=== PATIENT | female | born 2000 | race African-American/Black ===

== ENCOUNTER 2019-11-28 18:27 | Outpatient (CLI) | payer OTHER, SELFPAY ==
[2019-11-28] VITALS (7 sets, daily range): BP systolic 114–133; BP diastolic 58–83; PULSE 67–94; BMI 29.2
[2019-11-28] MEDS: ACETAMINOPHEN 500 MG TABLET 1000 MG PO (20:10)
[2019-11-28 20:22] LABS: Basophils Percent Auto 0.1 % (0.2-1.2); Eosinophils Percent Auto 0.2 % (0-4.4); Hematocrit 33.4 % (37.0-47.0); Hemoglobin 10.8 g/dL (12.0-15.0); Immature Granulocyte Absolute 0.04 K/mm3 (0.00-0.031); Immature Granulocyte Percent A 0.5 % (0-0.5); Lymphocytes Absolute Auto 2.03 K/mm3 (0.9-3.2); Lymphocytes Percent Auto 24.6 % (18.3-44.2); Mean Corpuscular HGB Conc 32.3 g/dl (32-36); Mean Corpuscular Volume 80.3 fl (80-100); Mean Platelet Volume 8.8 fl (7.4-10.4); Monocytes Absolute Auto 0.9 K/mm3 (0.1-0.6); Monocytes Percent Auto 10.8 % (2.6-8.5); Neutrophils Absolute Auto 5.3 K/mm3 (1.3-6.7); Neutrophils Percent Auto 63.8 % (45.5-73.1); Platelet Count Result 236 k/mm3 (150-375); Red Blood Count 4.16 M/mm3 (4.2-5.4); White Blood Count 8.2 K/mm3 (4.5-10.0)
[2019-11-28 20:27] LABS: Add Urine Microscopic? YES; Amorphous Sediment Urine Few; Appearance Urine Cloudy (Clear); Bacteria Urine 1+ /hpf; Bilirubin Urine Negative (Negative); Blood Urine Negative (Negative); Color Urine Yellow (Yellow); Glucose Urine UA Negative (Negative); Ketones Urine Negative (Negative); Leukocyte Esterase Ur 3+ LEU/UL (NEGATIVE); Mucus Urine Rare /lpf; Nitrate Urine Negative (Negative); Protein Urine Negative (Negative); Specific Grav Ur 1.019 (1.001-1.035); Squamous Epithelial Cell Urine Many /hpf (Few); WBC Urine 16-20 /hpf (0-3)
[2019-11-28 20:34] LABS: Alanine Aminotransferase 7 U/L (4-35); Albumin Level 3.4 g/dL (3.5-5.1); Alkaline Phosphatase 158 U/L (38-126); Aspartate Amino Transferase 21 U/L (14-36); Bilirubin,Total 0.3 mg/dL (0.2-1.3); Blood Urea Nitrogen 4 mg/dL (7-17); Calcium 8.6 mg/dL (8.4-10.2); Carbon Dioxide 21 mmol/L (22-30); Chloride 105 mmol/L (98-107); Estimated CRCL calculation 144 ml/min; Estimated Glomerular Filt Rate > 60; Glucose 73 mg/dL (65-105); Potassium 3.7 mmol/L (3.4-5.0); Sodium 133 mmol/L (137-145); Total Protein Urine Random 10 mg/dL; Uric Acid 3.3 mg/dL (2.5-7.5)
--- NOTE | 2019-11-28 22:09 | OBADM ---
This patient, Alex Osuna, admitted to the OB room OB Post 115 for observation. Patient/family oriented to hospital policies and general routines including ID bracelet, bed and alarms, visiting hours, pain management, procedures, bathroom and other care routines, personal items, smoking policy, room service/diet, and visiting hours. Patient/Family are encouraged to report perceived risks to care and to ask questions if they do not understand what they are told or what they should do.
== END 2019-11-28 21:32 | disposition home or self-care (01) ==
LOC: ANHOBPP 21:45 → ANHOBOP 11-30 12:42 → ANHOBPP 12-23 12:05
PROVIDERS: Advanced Practice Midwife; Visit Provider Obstetrics & Gynecology
DX: Z34.90 Encounter for supervision of normal pregnancy, unspecified, unspecified trimester (principal); Z3A.00 Weeks of gestation of pregnancy not specified
CPT/HCPCS: 36415; 80053; 81001; 82570; 84156; 84550; 85025; 87086; 87088; 99199; A9270

== ENCOUNTER 2019-11-30 11:53 | Observation (INO) | payer OTHER, SELFPAY ==
[2019-11-30] VITALS (12 sets, daily range): BP systolic 102–124; BP diastolic 56–74; PULSE 66–101; TEMP 36.5–37.3; BMI 28.3
--- NOTE | 2019-11-30 12:22 | OBADM ---
This patient, Alex Osuna, admitted to the OB room 116 at 1153 for observation for extended monitoring due to FHR deceleration on NST at [facility] office. Patient/family oriented to hospital policies and general routines including ID bracelet, bed and alarms, visiting hours, pain management, procedures, bathroom and other care routines, personal items, smoking policy, room service/diet, and visiting hours. Patient/Family are encouraged to report perceived risks to care and to ask questions if they do not understand what they are told or what they should do.
[2019-11-30] MEDS: ACETAMINOPHEN 500 MG TABLET 1000 MG PO (14:19)
--- NOTE | 2019-11-30 17:01 | WPDOBADMIT ---
Obstetrics - Admit Note Admission Note: record reviewed. Additions to the history and/or subsequent changes in the physical findings follow. pt admitted for observation following non reassuring NST today. Pt had 04/28 on biophysical profile and on US:11/30/2019 1. single, live IUP at [id number] 2. prev diagnosed early onset growth restriction 3. symmetric growth restriction (with short long bones) 4. Thorax circumference less than 1 st percentile 5. normal amniotic fluid 6. mild myocardial dysfunction 7. biventricular cardiac hypertrophy 8. overall appropriate BPP 9. non stress test with late deceleration 10. no signs of placental insufficeincy or brain sparing changes PLAN: monitor pt overnight, continuous monitoring, review in morning with MFM
--- NOTE | 2019-11-30 19:38 | PC.NURSE ---
Patient instructed to continue increasing PO fluids. Patient educated on positioning during . Patient changed to left lateral position with pillows for support. Patient instructed to call for RN if feeling and cramping or contractions.
[2019-11-30] MEDS: NITROFURANTOIN MONOHYD MACROCR 100 MG CAP PO (22:00)
--- NOTE | 2019-11-30 22:04 | PC.NURSE ---
Patient reports constant dull backache in center of back from positioning in bed. Position changed to right lateral position, pillows repositioned and K-Pad applied to back. Patient educated on K-Pad use prior to initiating. Patient denies questions and states understanding. Patient instructed to call for RN if backache does not improve following interventions.
[2019-12-01 01:00] VITALS: TEMP 36.8
[2019-12-01 07:18] VITALS: BP 107/62; PULSE 92; TEMP 36.6
[2019-12-01 12:06] VITALS: BP 113/69; PULSE 120
--- NOTE | 2019-12-01 13:09 | PM.IMHP ---
H&P: HPI History of Present Illness Chief complaint: monitoring Narrative: Alex Osuna is a 19 year old female 1 at 35 weeks gestation with early onset intrauterine growth restriction. She is admitted for long-term monitoring. She has no physical complaints. She denies any contractions, loss of fluid, vaginal bleeding. She denies any headache, blurry vision, epigastric pain. She denies any nausea, vomiting, fever, chills. The patient had some unique findings on her echocardiogram of the fetus. There is some thickened ventricular wall, Some there is some mild myocardial dysfunction. Review of Systems Constitutional: Constitutional: Reports no additional constitutional complaints, Denies fatigue, Denies headache(s), Denies lethargy and Denies weakness Eyes: Eyes: Reports no additional eye complaints, Denies blurry vision and Denies photophobia ENT: Reports as per HPI, Denies headache(s) and Denies neck pain Cardiovascular: Cardiovascular: Denies chest pain, Denies diaphoresis, Denies leg edema, Denies palpitations and Denies dyspnea Respiratory: Respiratory: Denies hemoptysis, Denies dyspnea and Denies wheezing Gastrointestinal: Gastrointestinal: Denies abdominal pain, Denies melena, Denies bloating, Denies hematochezia, Denies nausea and Denies vomiting Genitourinary: Genitourinary: Reports no additional female genitourinary complaints Musculoskeletal: Musculoskeletal: Denies joint swelling, Denies neck pain, Denies numbness and Denies stiffness Neurologic: Denies Abnormal speech present, Denies confusion, Denies headache(s), Denies numbness and Denies weakness Psychiatric: Psychiatric: Denies anxiety, Denies confusion, Denies depression, Denies homicidal ideation and Denies suicidal ideation Endocrine: Endocrine: Denies fatigue and Denies palpitations Allergic/Immunologic: Allergic/Immunologic: Denies wheezing Meds Home Medications and Allergies Home Medications Medication Instructions Recorded Confirmed Type PNV cmb#95-ferrous fumarate-FA 1 tablet PO DAILY 11/28/19 11/30/19 History [] acetaminophen [Tylenol Extra 500 mg PO Q6H PRN 11/30/19 11/30/19 History Strength] famotidine [Pepcid] 20 mg PO BID PRN 11/30/19 11/30/19 History Allergies Allergy/AdvReac Type Severity Reaction Status Date / Time No Known Allergies Allergy Verified 11/30/19 12:08 Vital Signs Vital Signs - 24 hr 11/30/19 13:30 11/30/19 14:00 11/30/19 15:00 Temperature Pulse Rate 66 67 Blood Pressure 115/61 115/72 105/67 11/30/19 16:00 11/30/19 17:07 11/30/19 18:00 Temperature 97.7 F Pulse Rate 80 101 H 70 Blood Pressure 115/74 124/69 109/66 11/30/19 19:00 11/30/19 20:00 11/30/19 22:00 Temperature 98.4 F Pulse Rate 86 73 Blood Pressure 103/58 L 102/56 L 12/01/19 01:00 12/01/19 07:18 12/01/19 12:06 Temperature 98.2 F 97.9 F Pulse Rate 92 120 H Blood Pressure 107/62 113/69 Exam Const: General: healthy appearing, comfortable and no acute distress; No confusion Orientation/consciousness: No confusion Eyes: Direct Ophthalmoscopy: No photophobia Resp: Auscultation: clear to auscultation bilaterally, no rales, no rhonchi and no wheezes Cardio: Rate: regular rate Heart sounds: no click, no murmurs and no rubs GI: Inspection: non-distended GI Palp: No abdominal tenderness Auscultation: normal bowel sounds Neuro: General: No confusion Speech: No Abnormal speech present Extrem: General: normal to inspection, no pedal edema and no calf tenderness Assessment and Plan Assessment and plan (1) IUGR (intrauterine growth restriction): Status: Acute Assessment and Plan: This patient is a 19-year-old 1 at 35 weeks gestation who presented for long-term IM due to some equivocal testing. Her long-term heart rate tracing is reassuring overall. His reactive. There are some occasional brief heart rate decelerations that are likely to be
[2019-12-03 14:30] LABS: CMV IgM Antibody <30.00 AU/mL (<30.00)
[2019-12-04 12:17] LABS: Toxoplasma IgG Antibody <7.20 IU/mL (<7.20)
[2019-12-04 14:40] LABS: Toxoplasma IgM Antibody <8.00 AU/mL (<8.00)
== END 2019-12-01 12:54 | disposition home or self-care (01) ==
LOC: ANHOBPP 11:59
PROVIDERS: Advanced Practice Midwife; Admitting Provider Obstetrics & Gynecology; Visit Provider Obstetrics & Gynecology
DX: O36.5930 Maternal care for other known or suspected poor fetal growth, third trimester, not applicable or unspecified (principal); Z3A.35 35 weeks gestation of pregnancy
CPT/HCPCS: 36415; 86644; 86645; 86777; A9270; G0378; G0379

== ENCOUNTER 2019-12-06 17:24 | Observation (INO) | payer OTHER, SELFPAY ==
--- NOTE | 2019-12-06 19:32 | LDADM ---
This patient, Alex Osuna, was admitted to Labor/Delivery/Recovery 104 on 12/06/19 at 17:24. Plans for labor, pain management and were discussed with patient. Patient/family oriented to hospital policies and general routines including ID bracelet, bed and alarms, visiting hours, pain management, procedures, bathroom and other care routines, personal items, smoking policy, room service/diet and guest tray routines, security routines, and visiting hours. Patient/Family are encouraged to report perceived risks to care and to ask questions if they do not understand what they are told or what they should do. See OBIX for further documentation.
--- NOTE | 2019-12-30 11:31 | PM.OBTRLD ---
OB - Triage/Final Diagnosis Visit Information Date of evaluation: 12/06/19 Final Diagnosis (1) False labor: Code(s): O47.9 - False labor, unspecified Status: Acute
== END 2019-12-06 19:40 | disposition home or self-care (01) ==
PROVIDERS: Admitting Provider Obstetrics & Gynecology; Visit Provider Obstetrics & Gynecology
DX: O47.9 False labor, unspecified (principal); Z3A.00 Weeks of gestation of pregnancy not specified
CPT/HCPCS: G0378; G0379

== ENCOUNTER 2019-12-17 21:54 | Observation (INO) | payer OTHER, SELFPAY ==
--- NOTE | 2019-12-17 21:54 | OBADM ---
This patient, Alex Osuna, admitted to the OB room Labor/Delivery/Recovery 104 for observation. Patient/family oriented to hospital policies and general routines including ID bracelet, bed and alarms, visiting hours, pain management, procedures, bathroom and other care routines, personal items, smoking policy, room service/diet, and visiting hours. Patient/Family are encouraged to report perceived risks to care and to ask questions if they do not understand what they are told or what they should do.
[2019-12-17 22:09] VITALS: TEMP 37; BMI 29.2
--- NOTE | 2019-12-17 23:15 | PC.NURSE ---
Dr. Fisher updated on patient SVE, FHT, Contractions and VS. SVE unchanged after 1 hour of monitoring. Discharge orders received. Patient to follow-up as scheduled.
[2019-12-17 23:16] VITALS: BP 121/85; PULSE 80
--- NOTE | 2019-12-17 23:31 | PC.NURSE ---
Discharge packet reviewed with patient, patient states understanding and denies questions.
--- NOTE | 2019-12-23 07:54 | PM.OBTRLD ---
OB - Triage/Final Diagnosis Final Diagnosis (1) False labor: Code(s): O47.9 - False labor, unspecified Status: Acute
--- NOTE | 2019-12-27 07:35 | PM.OBTRLD ---
OB - Triage/Final Diagnosis Final Diagnosis (1) False labor: Code(s): O47.9 - False labor, unspecified Status: Acute
--- NOTE | 2020-01-03 12:56 | PM.OBTRLD ---
OB - Triage/Final Diagnosis Final Diagnosis (1) False labor: Code(s): O47.9 - False labor, unspecified Status: Acute
== END 2019-12-17 23:31 | disposition home or self-care (01) ==
PROVIDERS: Admitting Provider Obstetrics & Gynecology; Visit Provider Obstetrics & Gynecology
DX: O47.1 False labor at or after 37 completed weeks of gestation (principal); Z3A.37 37 weeks gestation of pregnancy
CPT/HCPCS: G0378; G0379

== ENCOUNTER 2019-12-18 23:38 | Inpatient (IN) | payer OTHER, SELFPAY ==
[2019-12-03 15:34] VITALS: BMI 28.9
--- NOTE | ~2019-12-18 | US_ITS ---
EXAMINATION: US pelvic complete DATE: 12/19/2019 09:08 INDICATION: Possible retained placenta. TECHNIQUE: Multiple transabdominal and endovaginal sonographic images of the pelvis were obtained. COMPARISON: None. FINDINGS: The uterus measures 18.0 x 9.0 x 5.7 cm. The margins of the endometrial complex are somewhat poorly d efined at the uterine fundus where it measures approximately 17 mm in thickness. The endometrial comp rob narrows to approximately 4 mm at the body of the uterus with an additional region of thickening t o approximately 15 mm in the lower uterine segment. The right ovary measures 2.4 x 1.7 x 1.2 cm. The left ovary measures 3.0 x 1.6 x 1.6 cm. There is no free fluid in the pelvis. IMPRESSION: 1. Thickening of the endometrial complex with at the fundus and at the lower uterine segment which co uld be seen with retained products of conception. Reviewed, dictated and finalized at location A. IMPRESSION: 1. Thickening of the endometrial complex with at the fundus and at the lower ut erine segment which could be seen with retained products of conception.
--- NOTE | 2019-12-18 23:38 | LDADM ---
This patient, Aelx Osuna, was admitted to Labor/Delivery/Recovery 107 on 12/18/19 at 23:38. Plans for labor, pain management and were discussed with patient. Patient/family oriented to hospital policies and general routines including ID bracelet, bed and alarms, visiting hours, pain management, procedures, bathroom and other care routines, personal items, smoking policy, room service/diet and guest tray routines, security routines, and visiting hours. Patient/Family are encouraged to report perceived risks to care and to ask questions if they do not understand what they are told or what they should do. See OBIX for further documentation.
[2019-12-19] VITALS (131 sets, daily range): BP systolic 93–266; BP diastolic 54–235; PULSE 60–238; RESP 16–22; TEMP 36.6–38.4; O2SAT 96–100; BMI 29.2
[2019-12-19 01:18] LABS: Basophils Percent Auto 0.1 % (0.2-1.2); Eosinophils Percent Auto 0.2 % (0-4.4); Hematocrit 34.8 % (37.0-47.0); Hemoglobin 11.1 g/dL (12.0-15.0); Immature Granulocyte Absolute 0.03 K/mm3 (0.00-0.031); Immature Granulocyte Percent A 0.3 % (0-0.5); Lymphocytes Absolute Auto 2.53 K/mm3 (0.9-3.2); Lymphocytes Percent Auto 26.3 % (18.3-44.2); Mean Corpuscular HGB Conc 31.9 g/dl (32-36); Mean Corpuscular Hemoglobin 25.2 pg (26-34); Mean Corpuscular Volume 78.9 fl (80-100); Mean Platelet Volume 9.2 fl (7.4-10.4); Monocytes Absolute Auto 0.8 K/mm3 (0.1-0.6); Monocytes Percent Auto 8.6 % (2.6-8.5); Neutrophils Absolute Auto 6.2 K/mm3 (1.3-6.7); Neutrophils Percent Auto 64.5 % (45.5-73.1); Platelet Count Result 261 k/mm3 (150-375); Red Blood Count 4.41 M/mm3 (4.2-5.4); Red Cell Distribution Width 13.5 % (11.5-14.5); White Blood Count 9.6 K/mm3 (4.5-10.0)
[2019-12-19] MEDS: LACTATED RINGERS 1,000 ML 999 ML IV CONT (02:01)
[2019-12-19] MEDS: LACTATED RINGERS 1,000 ML 125 ML IV CONT (02:28)
--- NOTE | 2019-12-19 02:33 | WPDANESEPPF ---
Anes - Initial Pre Proc Eval Date/Time: 12/19/19 02:33 Surgeon: Mark Ramirez MD Pre Op Diagnosis: labor Patient Data Age: 19 Gender: F Height: 5 ft 3 in Weight: 75 kg Last Vital Signs Pulse 131 H 12/19/19 02:32 BP 132/85 12/19/19 02:32 Pulse Ox 99 12/19/19 02:30 Allergies Allergy/AdvReac Type Severity Reaction Status Date / Time No Known Allergies Allergy Verified 11/30/19 12:08 Home Medications Medication Instructions Recorded Confirmed Type PNV cmb#95-ferrous fumarate-FA 1 tablet PO DAILY 11/28/19 12/19/19 History [] acetaminophen [Tylenol Extra 500 mg PO Q6H PRN 11/30/19 12/19/19 History Strength] famotidine [Pepcid] 20 mg PO BID PRN 11/30/19 12/19/19 History Laboratory Tests 12/19/19 12/19/19 01:10 01:10 WBC 9.6 K/mm3 K/mm3 (4.5-10.0) RBC 4.41 M/mm3 M/mm3 (4.2-5.4) Hgb 11.1 g/dL L g/dL (12.0-15.0) Hct 34.8 % L % (37.0-47.0) MCV 78.9 fl L fl (80-100) MCH 25.2 pg L pg (26-34) MCHC 31.9 g/dl L g/dl (32-36) RDW 13.5 % % (11.5-14.5) Plt Count 261 k/mm3 k/mm3 (150-375) MPV 9.2 fl fl (7.4-10.4) Immature Gran % (Auto) 0.3 % % (0-0.5) Neut % (Auto) 64.5 % % (45.5-73.1) Lymph % (Auto) 26.3 % % (18.3-44.2) [place] % (Auto) 8.6 % H % (2.6-8.5) Eos % (Auto) 0.2 % % (0-4.4) Baso % (Auto) 0.1 % L % (0.2-1.2) Lymph # (Auto) 2.53 K/mm3 K/mm3 (0.9-3.2) [place] # (Auto) 0.8 K/mm3 H K/mm3 (0.1-0.6) Eos # (Auto) 0.0 K/mm3 K/mm3 (0-0.3) Baso # (Auto) 0.0 K/mm3 K/mm3 (0.0-0.1) Abs Immat Gran (auto) 0.03 K/mm3 K/mm3 (0.00-0.031) Absolute Neuts (auto) 6.2 K/mm3 K/mm3 (1.3-6.7) Absolute Nucleated RBC 0.0 K/mm3 K/mm3 (0.0-0.012) Nucleated RBC % 0.0 % % (0.0-0.2) RPR Pending Patient hx anesthesia problems: none Family hx anesthesia problems: none [facility] Social History Social History Smoking status: Never smoker Tobacco type: cigarettes Second hand tobacco smoke exposure: No Alcohol intake: never Substance use: former Substance use type: marijuana Living arrangements: with family Occupation/Education: occupation Gender identity (if verbalized by the patient): Female Spiritual care concerns: No Agree to blood products: Yes Anes - Eval Final PreProcedure Day of Procedure 12/19/19 02:33 Patient weight: overweight Heart: regular rate and rhythm Lungs: clear to auscultation Neurological: alert and oriented ASA classification: II Emergent: no Anesthetic plan: proceed Anesthesia type and monitoring: regional epidural and standard monitoring Informed Consent: The patient's anesthetic plan and its attendant risks and benefits were discussed with the patient/family/POA. Questions were solicited and answers provided to the satisfaction of the patient/family/POA.
[2019-12-19] MEDS: OXYTOCIN 30 UNITS/NS 500 ML 30 UNITS/500 ML BAG 999 UNITS IV CONT (07:46)
--- NOTE | 2019-12-19 08:18 | P.PCNOB_ITS ---
OB - Delivery Note Procedure Delivery date: 12/19/19 Procedure: events: Oligohydramnios Intrapartal events: Febrile Induction method: none Delivery monitor: external FHT and external uterine Route of delivery: Laceration description: Perineal - 1st Degree Delivery repair: vicryl (3-0) Specimen: Yes (placenta) Estimated blood loss (mL): 225 Anesthesia type: Epidural Disposition: floor [place] Baby Date of : 12/19/19 Time of : 07:36 Weeks of gestation at delivery: 38 Infant gender: Male Weight (pounds): 5 Weight (ounces): 8 presentation: vertex position: Left Occiput Anterior Placenta delivery description: Manual Removal score one minute: 8 score five minutes: 9
[2019-12-19] MEDS: OXYTOCIN 30 UNITS/NS 500 ML 30 UNITS/500 ML BAG 125 UNITS IV CONT (08:25)
--- NOTE | 2019-12-19 08:25 | WPDOBADMIT ---
Obstetrics - Admit Note Admission Note: record reviewed. No pertinent additions to the history and/or any subsequent changes in the physical findings that are not consistent with the expected course of the were found. Additions to the history and/or subsequent changes in the physical findings follow. at 38 weeks came in with c/o contractions and was admitted for active labor. c/b IUGR and oligohydramnios.
[2019-12-19 10:31] LABS: Rapid Plasma Reagin Non-Reactive (NonReactive)
[2019-12-19] MEDS: LACTATED RINGERS 1,000 ML 30 ML IV CONT ×2 (11:30→12:35)
--- NOTE | 2019-12-19 11:32 | WPDANESEPPF ---
Anes - Initial Pre Proc Eval Procedure: Operation Date: 12/19/19 12:30 Proposed Procedures p Suction Dilatation and Curettage - Rachel Fisher MD Date/Time: 12/19/19 11:32 Surgeon: Mark Ramirez MD Pre Op Diagnosis: labor Patient Data Age: 19 Gender: F Height: 5 ft 3 in Weight: 75 kg Last Vital Signs Temp 37.7 C H 12/19/19 08:11 Pulse 85 12/19/19 11:01 BP 136/79 12/19/19 11:01 Pulse Ox 100 12/19/19 07:34 Allergies Allergy/AdvReac Type Severity Reaction Status Date / Time No Known Allergies Allergy Verified 11/30/19 12:08 Home Medications Medication Instructions Recorded Confirmed Type PNV cmb#95-ferrous fumarate-FA 1 tablet PO DAILY 11/28/19 12/19/19 History [] acetaminophen [Tylenol Extra 500 mg PO Q6H PRN 11/30/19 12/19/19 History Strength] famotidine [Pepcid] 20 mg PO BID PRN 11/30/19 12/19/19 History Laboratory Tests 12/19/19 12/19/19 12/19/19 01:10 01:10 01:10 WBC 9.6 K/mm3 K/mm3 (4.5-10.0) RBC 4.41 M/mm3 M/mm3 (4.2-5.4) Hgb 11.1 g/dL L g/dL (12.0-15.0) Hct 34.8 % L % (37.0-47.0) MCV 78.9 fl L fl (80-100) MCH 25.2 pg L pg (26-34) MCHC 31.9 g/dl L g/dl (32-36) RDW 13.5 % % (11.5-14.5) Plt Count 261 k/mm3 k/mm3 (150-375) MPV 9.2 fl fl (7.4-10.4) Immature Gran % (Auto) 0.3 % % (0-0.5) Neut % (Auto) 64.5 % % (45.5-73.1) Lymph % (Auto) 26.3 % % (18.3-44.2) [place] % (Auto) 8.6 % H % (2.6-8.5) Eos % (Auto) 0.2 % % (0-4.4) Baso % (Auto) 0.1 % L % (0.2-1.2) Lymph # (Auto) 2.53 K/mm3 K/mm3 (0.9-3.2) [place] # (Auto) 0.8 K/mm3 H K/mm3 (0.1-0.6) Eos # (Auto) 0.0 K/mm3 K/mm3 (0-0.3) Baso # (Auto) 0.0 K/mm3 K/mm3 (0.0-0.1) Abs Immat Gran (auto) 0.03 K/mm3 K/mm3 (0.00-0.031) Absolute Neuts (auto) 6.2 K/mm3 K/mm3 (1.3-6.7) Absolute Nucleated RBC 0.0 K/mm3 K/mm3 (0.0-0.012) Nucleated RBC % 0.0 % % (0.0-0.2) RPR Non-reactive (NonReactive) Blood Type O Positive Antibody Screen Negative Patient hx anesthesia problems: none Family hx anesthesia problems: none [facility] Past Medical History Medical History (Updated 12/19/19 @ 11:32 by Pro Hoffmann MD) Retained products of conception Social History Social History Smoking status: Never smoker Tobacco type: cigarettes Second hand tobacco smoke exposure: No Alcohol intake: never Substance use: former Substance use type: marijuana Living arrangements: with family Occupation/Education: occupation Gender identity (if verbalized by the patient): Female Spiritual care concerns: No Agree to blood products: Yes Anes - Eval Final PreProcedure Day of Procedure 12/19/19 11:32 Patient weight: overweight Heart: regular rate and rhythm Lungs: clear to auscultation Airway: Mallampati scale class II Neurological: alert and oriented Last oral intake: >/= 8 hours ASA classification: II Emergent: yes Anesthetic plan: proceed Anesthesia type and monitoring: regional (existing epidural) epidural and standard monitoring Informed Consent: The patient's anesthetic plan and its attendant risks and benefits were discussed with the patient/family/POA. Questions were solicited and answers provided to the satisfaction of the patient/family/POA.
--- NOTE | 2019-12-19 12:17 | PC.NURSE ---
1115--Pt. to pre-op via stretcher.
--- NOTE | 2019-12-19 12:59 | PM.OP ---
Procedure Note - Brief Procedure Note - Brief Date of procedure: 12/19/19 Pre-op diagnosis: labor Retained placenta Post-op diagnosis: same Procedure performed: Suction D&C Anesthesia: epidural Surgeon: Rachel Fisher MD Estimated blood loss (mL): 200 Urine output (mL): 650 Drains: No Pathology: yes Complications: No immediate complications Condition: stable Disposition: PACU Findings: small amounts placental tissue
--- NOTE | 2019-12-19 13:22 | SUR.PHASEI ---
1319 pt will be going to 284 now. sbar faxed floor notified
--- NOTE | 2019-12-19 14:40 | OBPPTRN ---
Patient transferred to post room #284 via stretcher transfered per self to bed. Support person present. Oriented to unit, room, information board, rooming in, admission packet and security measures. Patient verbalizes understanding.
[2019-12-19] MEDS: IBUPROFEN 600 MG TABLET PO (15:05)
[2019-12-20] MEDS: IBUPROFEN 600 MG TABLET PO (04:37)
[2019-12-20 05:37] LABS: Hematocrit 25.1 % (37.0-47.0); Hemoglobin 8.2 g/dL (12.0-15.0)
--- NOTE | 2019-12-20 06:00 | OP_ITS ---
DATE OF PROCEDURE: 12/19/2019 PREOPERATIVE DIAGNOSIS: Retained placenta after vaginal delivery. POSTOPERATIVE DIAGNOSIS: Retained placenta after vaginal delivery. PROCEDURE PERFORMED: Suction, dilation, and curettage. ANESTHESIA: Epidural. ESTIMATED BLOOD LOSS: 200 mL. COMPLICATIONS: None. FINDINGS: Small amounts of retained placental tissue. INDICATIONS: 19-year-old, G2, P 1-0-1-1, who had a vaginal delivery at 07:36 today. Her placenta did not deliver spontaneously, so after 30 minutes after delivery, manual removal was done. I thought that I had removed the entire placenta, but was not positive, so an ultrasound was ordered which did show retained placental tissue, so she was recommended to proceed with D and C, and she did sign consent after the risks, benefits, complications, and alternatives were discussed. DESCRIPTION OF PROCEDURE: She was taken to the operating room where epidural anesthesia was still in place from delivery and was found to be adequate. She was prepared and draped in the normal sterile fashion in the dorsal lithotomy position. A speculum was placed and the anterior lip of the cervix was grasped with an Allis clamp. The cervix was dilated to allow passage of a #14 curved suction curette. Several passes were made to obtain small amounts of placental tissue. A sharp curettage was then done gently to loosen up any remaining tissue and another pass was then taken with the suction curette with minimal blood obtained. The Allis clamp was then removed. The speculum was removed from the vagina. Fundal pressure was placed to assess the status of her uterus, which was firm and below her umbilicus, urine was noted to be coming out of her urethra, so a straight catheterization was done with about 650 mL of clear yellow urine obtained. She tolerated the procedure well. Sponge, lap, and instrument counts were correct x2, and she was taken to the recovery area in stable condition. D I MT: Erika
--- NOTE | 2019-12-20 07:39 | P.PNOB_ITS ---
OB - PN: Subj Subjective Date/time seen: 12/20/19 07:39 Patient comments: no complaints, pain well controlled and other (Lochia similar to menses) [place] baby status: doing well OB - PN: Obj Data Labs CBC & Chem 7: 12/20/19 04:41 Labs: Laboratory Results - last 24 hr 12/19/19 12/20/19 01:10 04:41 Hgb 8.2 L Hct 25.1 L RPR Non-reactive Imaging Radiologist's impression: Impressions Pelvis Ultrasound 12/19/19 09:20 IMPRESSION: 1. Thickening of the endometrial complex with at the fundus and at the lower uterine segment which could be seen with retained products of conception. OB - PN A/P Plan day: 1 (s/p vaginal delivery, doing well) Plan: routine care and discharge home (Follow up in 1 week) Comments: Postop day 1 s/p suction D&C for retained placenta. Anemia - asymptomatic. Lochia similar to menses. Time Spent With Patient Time: Total time spent is greater than 50% in coordination of care (as documented) at patient's floor/unit and/or counseling patient: Time with patient: less than 15 minutes Exam Const: General: no acute distress GI: Inspection: other (Fundus firm and nontender at umbilicus) GI Palp: Yes Soft to palpation and No Tenderness to palpation present (GI) Extrem: General: no edema
--- NOTE | 2019-12-20 07:41 | PM.OBDSVD ---
OB - DS: Summary OB Procedures : None OB Procedures Intrapartum: Spontaneous Vag Delivery, Uterine exploration and Retained placenta OB Procedures: : Curettage Peripartum Data Delivery Method: Natural Vaginal Laceration description: Perineal - 1st Degree Procedures: Procedures Operation Date: 12/19/19 12:30 Actual Procedures Side Surgeon p Suction Dilatation and Curettage Rachel Fisher MD complications: retained placenta Status at Discharge Functional status at discharge: independent ambulation Overall status at discharge: patient is progressing back to baseline Time Spent with Patient Time attestation: Total time spent providing and/or coordinating discharge services: Time spent: Less than 30 minutes DS: Data Data Completed and Pending Pending studies at discharge: Pending at discharge 12/19/19 12:16 Surgical [PTH] Routine Labs on day of discharge: Labs from last 24 hours 12/20/19 12/19/19 04:41 01:10 Hgb 8.2 L Hct 25.1 L RPR Non-reactive Discharge Plan Discharge Attending physician on discharge: Rachel Fisher Discharging Clinician: Rachel Fisher Patient Disposition: Home, Self-Care Activity: may shower and pelvic rest Diet: regular Patient Instructions: Antibiotic Form Stand Alone Forms: General Discharge Information Follow-up/Referrals: Rachel Fisher MD [Physician] - 1 Week Discharge Medications: New ibuprofen 600 mg Tablet 600 mg PO Q6H PRN (Reason: Cramping) Qty: 60 RF: 0 Continued acetaminophen [Tylenol Extra Strength] 500 mg Tablet 500 mg PO Q6H PRN (Reason: Pain) RF: 0 famotidine [Pepcid] 20 mg Tablet 20 mg PO BID PRN (Reason: Heartburn) RF: 0 PNV cmb#95-ferrous fumarate-FA [] 28 mg iron- 800 mcg Tablet 1 tablet PO DAILY RF: 0 Date of admission: 12/18/19 23:38 Primary Care Provider: UNKNOWN,DOCTOR Admitting Provider: Mark Ramirez Attending physician on admission: Mark Ramirez
[2019-12-20 08:00] VITALS: BP 98/59; PULSE 84; RESP 16; TEMP 36.9; O2SAT 100
--- NOTE | 2019-12-20 09:48 | WPDANLDPN2 ---
Anes-Prog Note L&D Date/Time: 12/20/19 09:48 Comfortable throughout: labor and delivery Neuraxial method: epidural Epidural/Spinal procedure site: clean & non-tender Neuro status: Neuro function grossly intact. Cardiovascular status: normal Respiratory status: normal Airway patency: baseline Mental status: baseline Post-Op hydration status: normal Vital Signs: Last Vital Signs Temp 98.4 F 12/20/19 08:00 Pulse 84 12/20/19 08:00 Resp 16 12/20/19 08:00 BP 98/59 L 12/20/19 08:00 Pulse Ox 100 12/20/19 08:00 Post-procedural complaints: none Patient feedback: Patient satisfied with anesthetic care.
[2019-12-20] MEDS: POLYSACCHARIDE IRON COMPLEX 150 MG CAPSULE PO (09:50)
--- NOTE | 2019-12-20 09:50 | WPDANESPN ---
Anes - Prog Note Post-Op Date/Time: 12/20/19 09:50 Cardiovascular status: normal Respiratory status: normal Airway patency: baseline Mental status: baseline Post-Op hydration status: normal Vital Signs: Last Vital Signs Temp 98.4 F 12/20/19 08:00 Pulse 84 12/20/19 08:00 Resp 16 12/20/19 08:00 BP 98/59 L 12/20/19 08:00 Pulse Ox 100 12/20/19 08:00 Laboratory Tests 12/20/19 04:41 12/19/19 12/20/19 01:10 04:41 Hgb 8.2 L Hct 25.1 L RPR Non-reactive Post-procedural complaints: none Patient Feedback: Patient satisfied with anesthetic care.
[2019-12-20] MEDS: DOCUSATE SODIUM 100 MG CAPSULE PO (09:51)
--- NOTE | 2019-12-20 10:00 | PC.NURSE ---
Consulted with patient, mother reports she has bottle fed since she returned from surgery and now wishes to breastfeed. Reviewed feeding cues, frequencies, duration of feedings, feeding elimination flow sheet, and signs of adequate intake. Demonstrated stimulation techniques to wake for feeding. Assisted with to breast. Reviewed positioning/alignment in cross cradle, holding breast in U hold and guided asymmetrical latch on. Infant was able to latch correctly with first attempt. nursed eagerly, with steady draws and frequent swallowing noted. Reviewed signs of a correct latch, effective nursing and suck swallow ratio. Infant was able to maintain latch without discomfort to mother. Nipple care reviewed. Instructed mother to call out for RN assistance if she is unable to latch for feeding or she has discomfort with nursing. Instructed feeding should be initiated three hours from start of last feeding or if feeding cues are noted before. Mother voiced understanding of information shared. Mother wishes to be discharged today. Suggested mother continue to put to breast each feeding and give 15 mls supplement after for the next several feedings. Advised if continues to feed as well as this feeding, she can discontinue supplement if is satisfied, feeding as required and having required output. Advised if infant does not have required feedings/output she should continue to breastfeed and supplement until seen by WIC or return for LC apt. Mother is feeding as required and waking to feed if needed. Infant is currently meeting outcomes for weight, output, jaundice and feeding frequencies. Mother states she feels confident to continue effective at home, with above plan. Reviewed transition to breast milk, signs of adequate intake, and engorgement/relief. Instructed to call ICP if intake/output less than required. Reviewed regular medications mother is taking. Information provided per Ar[facility]. Reviewed community resources on the [employer] website and in the Mom/Baby guide. Information on outpatient services provided. Mother has no further questions at this time.
--- NOTE | 2019-12-20 15:45 | PC.NURSE ---
Patient viewed the discharge video Mother & Baby Care, The First Two Weeks . Patient was given the opportunity and encouraged to ask questions. Patient verbalized understanding of information shared and has been given the mother/baby guide for home reference.
[2019-12-21 10:50] VITALS: BP 120/88; PULSE 83; RESP 20; TEMP 37; O2SAT 100
--- NOTE | 2020-01-06 09:15 | HP_ITS ---
DATE OF SERVICE: HISTORY OF PRESENT ILLNESS: The patient is 19 years old G2, P0-0-1-0 at 38 weeks gestation, who came in with complaint of contractions and was found to be in active labor. Her has been complicated by intrauterine growth restriction and oligohydramnios. MEDICAL HISTORY: Acid reflux. MEDICATIONS: vitamin and Pepcid. ALLERGIES: NO KNOWN DRUG ALLERGIES. SURGICAL HISTORY: Negative. SOCIAL HISTORY: She denies history of tobacco or alcohol use. She used to use marijuana, but has quit. OPERATION DATE: 1 miscarriage in 1st trimester. REVIEW OF SYSTEMS: Negative. PHYSICAL EXAMINATION: VITAL SIGNS: She is afebrile with normal vital signs and heart rate tracing is reassuring. GENERAL: No apparent distress. HEART: Regular rate and rhythm. LUNGS: Clear to auscultation. ABDOMEN: Gravid, soft, nontender, nondistended. EXTREMITIES: Nontender with trace edema. PELVIC: Cervix when I first saw her myself, she was complete, complete and +2 station. ASSESSMENT AND PLAN: 1. G2, P0-0-1-0 at 38 weeks in active labor. Anticipate vaginal delivery. 2. status reassuring although she does have history of IUGR and oligohydramnios. The fetus has been doing well in labor. D I MT: Erika
== END 2019-12-20 15:27 | disposition home or self-care (01) | DRG 541 ==
LOC: ANHLDR 12-19 11:19 → ANHOB2 12-20 07:41 → ANHLDR 12-21 11:52 → ANHOB2 12-21 11:52
PROVIDERS: Admitting Provider Obstetrics & Gynecology; Visit Provider Obstetrics & Gynecology
PROC: 10E0XZZ Delivery of Products of Conception, External Approach (ICD-10-PCS; principal; 2019-12-19 12:30)
DX: O41.03X0 Oligohydramnios, third trimester, not applicable or unspecified (principal); Z37.0 Single live birth; Z3A.38 38 weeks gestation of pregnancy; O70.0 First degree perineal laceration during delivery; O73.1 Retained portions of placenta and membranes, without hemorrhage; O36.8330 Maternal care for abnormalities of the fetal heart rate or rhythm, third trimester, not applicable or unspecified; O77.0 Labor and delivery complicated by meconium in amniotic fluid; O75.2 Pyrexia during labor, not elsewhere classified
CPT/HCPCS: 36415; 76856; 85014; 85018; 85025; 86592; 86850; 86900; 86901; 88305; 88307; A9270; J2405; J2590; J2704; J2795; J3010; J7120

== ENCOUNTER 2021-02-21 10:43 | Emergency (ER) | payer OTHER, SELFPAY ==
[2021-02-21] VITALS (17 sets, daily range): BP systolic 100–124; BP diastolic 55–89; PULSE 56–84; RESP 9–22; O2SAT 89–100
--- NOTE | ~2021-02-21 | XR_ITS ---
EXAMINATION: XR knee RT 3V DATE: 02/21/2021 13:53 INDICATION: Right knee pain. TECHNIQUE: 3 views of right knee were obtained. COMPARISON: None. FINDINGS: Bone alignment is normal. No fracture. Joint spaces are well maintained. There is no knee j oint effusion. IMPRESSION: 1. Normal right knee. Reviewed, dictated and finalized at location A. IMPRESSION: 1. Normal right knee.
[2021-02-21 11:48] LABS: Basophils Percent Auto 0.1 % (0.2-1.2); Eosinophils Percent Auto 0.6 % (0-4.4); Hematocrit 41.7 % (37.0-47.0); Hemoglobin 13.7 g/dL (12.0-15.0); Immature Granulocyte Absolute 0.02 K/mm3 (0.00-0.031); Immature Granulocyte Percent A 0.3 % (0-0.5); Lymphocytes Absolute Auto 2.38 K/mm3 (0.9-3.2); Lymphocytes Percent Auto 35.1 % (18.3-44.2); Mean Corpuscular HGB Conc 32.9 g/dl (32-36); Mean Corpuscular Hemoglobin 27.1 pg (26-34); Mean Corpuscular Volume 82.4 fl (80-100); Mean Platelet Volume 7.9 fl (7.4-10.4); Monocytes Absolute Auto 0.5 K/mm3 (0.1-0.6); Monocytes Percent Auto 7.7 % (2.6-8.5); Neutrophils Absolute Auto 3.8 K/mm3 (1.3-6.7); Neutrophils Percent Auto 56.2 % (45.5-73.1); Platelet Count Result 263 k/mm3 (150-375); Red Blood Count 5.06 M/mm3 (4.2-5.4); Red Cell Distribution Width 13.5 % (11.5-14.5); White Blood Count 6.8 K/mm3 (4.5-10.0)
[2021-02-21 11:57] LABS: Alanine Aminotransferase 8 U/L (4-35); Albumin Level 4.4 g/dL (3.5-5.1); Alkaline Phosphatase 66 U/L (38-126); Anion Gap 7 mmol/L (8-16); Aspartate Amino Transferase 32 U/L (14-36); Bilirubin,Total 0.6 mg/dL (0.2-1.3); Blood Urea Nitrogen 9 mg/dL (7-17); Calcium 9.7 mg/dL (8.4-10.2); Carbon Dioxide 27 mmol/L (22-30); Chloride 107 mmol/L (98-107); Estimated CRCL calculation 107 ml/min; Estimated Glomerular Filt Rate > 60; Glucose 89 mg/dL (65-105); Phosphorus 2.9 mg/dL (2.5-4.5); Potassium 4.1 mmol/L (3.4-5.0); Sodium 141 mmol/L (137-145)
[2021-02-21 12:02] LABS: Beta-Hydroxybutyrate/Acetoacetate 0.13 mmol/L (0.02-0.27)
[2021-02-21 12:03] LABS: Add Urine Microscopic? YES; Appearance Urine Clear (Clear); Bilirubin Urine Negative (Negative); Blood Urine Negative (Negative); Color Urine Yellow (Yellow); Glucose Urine UA Negative (Negative); Ketones Urine Negative (Negative); Leukocyte Esterase Ur 3+ LEU/UL (Negative); Nitrate Urine Negative (Negative); Protein Urine 2+ mg/dL (Negative); Specific Grav Ur 1.019 (1.001-1.035); Urobilinogen Urine Negative mg/dL (<2.0)
[2021-02-21 12:17] LABS: Bacteria Urine Trace /hpf; RBC Urine 0-2 /hpf (0-2); Squamous Epithelial Cell Urine Moderate /hpf (Few)
[2021-02-21 13:00] LABS: Hemoglobin A1C 5.4 % (<5.7)
--- NOTE | 2021-02-21 14:53 | ED.GENADULT ---
HPI - General Adult General Chief complaint: Unspecified Stated complaint: knee pain, wants tested for diabetes Time Seen by Provider: 02/21/21 13:04 Source: patient Mode of arrival: ambulatory Limitations: no limitations History of Present Illness HPI narrative: Patient is a 20-year-old female presents with multiple complaints. Patient is requesting testing for diabetes as she has had increased thirst urination. She reports a history of diabetes in her family. She also reports right knee pain, denies injury, denies other complaints at this time. Patient ambulatory from triage without difficulty. Denies significant medical history. Denies taking [id number] medications for pain. She reports symptoms over the past 1 to 2 weeks intermittently with increasing frequency over the past week. MD complaint: Urinary frequency, excessive thirst Related Data Home Medications Medication Instructions Recorded Confirmed etonogestrel 68 mg subdermal 1 implant SUBDERMAL ONCE 08/07/20 implant Allergies Allergy/AdvReac Type Severity Reaction Status Date / Time No Known Allergies Allergy Verified 02/21/21 13:01 Review of Systems Review of Systems: Narrative: CONSTITUTIONAL: Denies fever, chills, or sweats. EYES: Denies visual changes, redness, or discharge. ENT: Denies rhinorrhea, congestion, sore throat, or otalgia. CARDIOVASCULAR: Denies chest pain, palpitations, or edema. RESPIRATORY: Denies cough or dyspnea. GASTROINTESTINAL: Denies abdominal pain, nausea, vomiting, or diarrhea. GENITOURINARY: Denies dysuria or hematuria. Reports frequency SKIN: Denies rash or itching. MUSCULOSKELETAL: Reports right knee pain NEUROLOGIC: Denies headache, numbness, dizziness, or weakness. PSYCHIATRIC: Denies anxiety or depression. [facility] Past Medical History Medical History Anemia Retained placenta or amniotic membrane after delivery without hemorrhage Retained products of conception Termination of 2018 Vaginal delivery 12/19/19, , full term, male, 5#8 Social History Social History Smoking status: Never smoker Second hand tobacco smoke exposure: No Alcohol intake: never Drinks per week: 3 Substance use: former Substance use type: marijuana Gender identity (if verbalized by the patient): Female Spiritual care concerns: No Agree to blood products: Yes Comments At the time of signature, I have reviewed and agree with nursing past medical, surgical, social, and family history unless otherwise noted. Please see nursing chart for further information. There is no relevant family history pertinent to the presenting complaint. Exam Narrative: Exam Narrative: GENERAL: Well-appearing, well-nourished, and in no acute distress. HEAD: Normocephalic, atraumatic. EYES: EOMI. No redness or drainage. Conjunctiva are normal. ENT: Mucous membranes pink and moist. CHEST: No respiratory distress. Clear to auscultation. HEART: Regular rate and rhythm. No murmur appreciated. Normal peripheral pulses. MUSCULOSKELETAL: No bony tenderness. EXTREMITIES: Normal range of motion. No edema. SKIN: Warm, dry, no rash. NEURO: No focal deficits. Alert and oriented x3. Gait steady. PSYCH: Normal affect. No signs of depression or anxiety. Course Vital Signs Vital signs: Vital Signs Pulse Rate 72 02/21/21 11:34 Respiratory Rate 16 02/21/21 11:34 Blood Pressure 119/81 02/21/21 11:34 Pulse Oximetry 100 02/21/21 11:34 Pulse Rate 62 02/21/21 14:15 Respiratory Rate 17 02/21/21 14:15 Blood Pressure 124/82 02/21/21 13:20 Pulse Oximetry 100 02/21/21 14:15 Reviewed-patient is informed that they may have pre-hypertension or hypertension based on a blood pressure reading. I recommend the patient call the primary care provider listed on their discharge instructions or a physician of their choice
== END 2021-02-21 15:40 | disposition home or self-care (01) ==
PROVIDERS: Emergency Medicine; Emergency Provider Nurse Practitioner
DX: N39.0 Urinary tract infection, site not specified (principal); M25.561 Pain in right knee; Z86.2 Personal history of diseases of the blood and blood-forming organs and certain disorders involving the immune mechanism; R03.0 Elevated blood-pressure reading, without diagnosis of hypertension
CPT/HCPCS: 36415; 73562; 80053; 81001; 81025; 82010; 83036; 83735; 84100; 85025; 99283

== ENCOUNTER 2021-03-31 09:06 | Emergency (ER) | payer OTHER, SELFPAY ==
[2021-03-31 09:10] VITALS: BP 113/63; PULSE 96; RESP 16; TEMP 37.3; O2SAT 100
--- NOTE | 2021-03-31 09:36 | ED.NAVMDI ---
HPI - Nausea/Vomiting/Diarrhea General Chief complaint: Nausea/Vomiting/Diarrhea Stated complaint: Nausea, diarrhea, coughing and headache Time Seen by Provider: 03/31/21 09:20 Source: patient and RN notes reviewed Mode of arrival: ambulatory Limitations: no limitations History of Present Illness HPI Narrative: Patient presents today with a 2-week history of diarrhea. States she has 5-6 loose stools per day. Denies blood or mucus in the stools. Denies abdominal pain associated with the diarrhea. Since last night she reports 4 episodes of vomiting, but has been able to keep fluids down. She is still having normal urine output. Denies fever. She is not currently nauseated. She has not had her diarrhea checked out by her PCP. MD elicited complaint: nausea, vomiting and diarrhea Related Data Home Medications Medication Instructions Recorded Confirmed etonogestrel 68 mg subdermal 1 implant SUBDERMAL ONCE 08/07/20 03/31/21 implant Allergies Allergy/AdvReac Type Severity Reaction Status Date / Time No Known Allergies Allergy Verified 02/21/21 13:01 Review of Systems Review of Systems: Narrative: CONSTITUTIONAL: Denies body aches, fever, chills, or sweats. EYES: Denies visual changes, redness, or discharge. ENT: Denies rhinorrhea, congestion, sore throat, or otalgia. CARDIOVASCULAR: Denies chest pain, palpitations, or edema. RESPIRATORY: Denies cough or dyspnea. GASTROINTESTINAL: Denies abdominal pain. + Nausea, vomiting, diarrhea GENITOURINARY: Denies dysuria or hematuria. SKIN: Denies rash, itching, or wounds. MUSCULOSKELETAL: Denies back pain, joint pain, or myalgia. NEUROLOGIC: Denies headache, numbness, tingling, or weakness. PSYCH: Denies depression or anxiety. [facility] Past Medical History Medical History Anemia Retained placenta or amniotic membrane after delivery without hemorrhage Retained products of conception Termination of 2018 Vaginal delivery 12/19/19, , full term, male, 5#8 Social History Social History Smoking status: Never smoker Second hand tobacco smoke exposure: No Alcohol intake: never Drinks per week: 3 Substance use: former Substance use type: marijuana Gender identity (if verbalized by the patient): Female Spiritual care concerns: No Agree to blood products: Yes Comments At time of signature, I have reviewed and agree with nursing past medical, surgical, social and family history unless otherwise noted. Please see nursing chart for further information. There is no relevant family history pertinent to the presenting complaint Exam Narrative: Exam Narrative: GENERAL: Well-appearing, well-nourished, and in no acute distress. HEAD: Normocephalic, atraumatic. EYES: EOMI. No redness or drainage. Conjunctivae normal. ENT: Mucous membranes pink and moist. NECK: Normal AROM. CHEST: No respiratory distress. Clear to auscultation. HEART: Regular rate and rhythm. No murmur appreciated. Normal peripheral pulses. ABDOMEN: Soft, nontender, nondistended, normal active bowel sounds. MUSCULOSKELETAL: No bony tenderness. EXTREMITIES: Normal range of motion. No edema. SKIN: Warm, dry, no rash. Capillary refill normal. Normal skin turgor. NEURO: No focal deficits. Alert and oriented x3. Gait steady. PSYCH: Normal affect. No signs of depression or anxiety. Course Vital Signs Vital signs: Vital Signs Temperature 99.1 F 03/31/21 09:10 Pulse Rate 96 03/31/21 09:10 Respiratory Rate 16 03/31/21 09:10 Blood Pressure 113/63 03/31/21 09:10 Pulse Oximetry 100 03/31/21 09:10 Temperature 99.1 F 03/31/21 09:10 Pulse Rate 96 03/31/21 09:10 Respiratory Rate 16 03/31/21 09:10 Blood Pressure 113/63 03/31/21 09:10 Pulse Oximetry 100 03/31/21 09:10 Reviewed MDM - Nausea/Vomiting/Diarrhea Differential Diagnosi
== END 2021-03-31 09:43 | disposition home or self-care (01) ==
PROVIDERS: Emergency Provider Nurse Practitioner
DX: R11.2 Nausea with vomiting, unspecified (principal); R19.7 Diarrhea, unspecified; D64.9 Anemia, unspecified
CPT/HCPCS: 99213; G0463